=== PATIENT | male | born 1980 | race Caucasian/White ===

== ENCOUNTER 2020-08-07 17:35 | Emergency (ER) | payer OTHER ==
[~2020-08-07] VITALS: Ht 172.7 cm; Wt 74.8 kg
--- NOTE | 2020-08-07 19:05 | NUR ---
ASSUMED CARE FOR THIS PT
--- NOTE | 2020-08-07 19:15 | NUR ---
PT CAME TO THE ED W/ A PLAN TO OD ON PILLS. PT AAOX4, VSS, RESPIRATIONS EVEN AND UNLABORED ON RA W/ NAD NOTED. PT CONNECTED TO THE MONITOR AND POX. PT CHANGED TO GOWN, BELONGINGS PLACED TO LOCKER. SAFETY PRECAUTIONS IMPLEMENTED. WILL CONTINUE TO MONITOR PT
[2020-08-07 19:22] LABS: BASOPHILS % (AUTO) 0.7 % (0.0-2.0); EOSINOPHILS % (AUTO) 3.7 % (0.0-6.0); HEMATOCRIT 43 % (39-51); HEMOGLOBIN 14.6 g/dL (13.5-17.5); LYMPHOCYTES # (AUTO) 1.6 /CMM (0.8-4.8); LYMPHOCYTES % (AUTO) 24.8 % (20.0-44.0); MEAN CORPUSCULAR HGB CONC 34 g/dl (31.0-36.0); MEAN CORPUSCULAR VOLUME 92 fL (80-96); MONOCYTES # (AUTO) 0.5 /CMM (0.1-1.30); MONOCYTES % (AUTO) 7.7 % (2.0-12.0); NEUTROPHILS # (AUTO) 4.1 /CMM (1.8-8.9); NEUTROPHILS % (AUTO) 63.1 % (43.0-81.0); PLATELET COUNT (AUTO) 257 /CMM (150-450); RED BLOOD CELL COUNT(AUTO) 4.72 MIL/uL (4.5-6.0); WHITE BLOOD COUNT (AUTO) 6.5 K/uL (4.3-11.0)
[2020-08-07 19:29] LABS: CALCIUM, SERUM 8.8 mg/dL (8.5-10.1); CARBON DIOXIDE 28 mmol/L (21-32); CHLORIDE 105 mmol/L (98-107); CREATININE 0.8 mg/dL (0.6-1.3); GLUCOSE 100 mg/dL (74-106); POTASSIUM 4.1 mmol/L (3.5-5.1); SODIUM SERUM 140 mmol/L (136-145); UREA NITROGEN, BLOOD 12 mg/dL (7-18)
[2020-08-07 19:33] LABS: ALCOHOL, BLOOD < 3 mg/dL (0-0)
[2020-08-07 19:36] LABS: ACETAMINOPHEN 0 ug/ml (10-30); SALICYLATE 2.2 mg/dL (2.8-20.0)
--- NOTE | 2020-08-07 21:20 | NUR ---
URINE COLLECTED AND SENT TO LAB
--- NOTE | 2020-08-07 23:01 | NUR ---
CLINICAL FAXED TO [facility].
--- NOTE | 2020-08-08 02:28 | NUR ---
REPORT CALLED TO [facility] [address] LOYDA MORRIS. AWAITING TRANSPORT.
[2020-08-08 03:07] VITALS: BP 112/64
--- NOTE | 2020-08-08 03:08 | NUR ---
REPORT GIVEN TO EMS. PT STABLE FOR TRANSFER
== END 2020-08-08 03:09 ==
LOC: ER 17:41
DX: R45.851 Suicidal ideations (principal); F20.9 Schizophrenia, unspecified; F41.8 Other specified anxiety disorders; Z91.5 Personal history of self-harm; Z20.828 Contact with and (suspected) exposure to other viral communicable diseases; F17.210 Nicotine dependence, cigarettes, uncomplicated
CPT/HCPCS: 36415; 80048; 80299; 80307 ×2; 80320; 85025; 87426; 99285; 99406; A6403; C9803; J7040; G0480

== ENCOUNTER 2020-08-29 18:35 | Emergency (ER) | payer OTHER ==
[~2020-08-29] VITALS: Ht 177.8 cm; Wt 72.6 kg
--- NOTE | 2020-08-29 19:02 | NUR ---
URINE SPECIMEN COLLECTED AND SENT TO LAB.
--- NOTE | 2020-08-29 19:10 | NUR ---
PT CAME TO THE ER C/O SI W/ A PLAN TO RUN INTO TRAFFIC. PT DENIES HI. PT STATES " I HAVE BEEN REALLY SAD AND DEPRESSED". PT AAOX4, VSS, RESPIRATIONS EVEN AND UNLABORED ON RA W/ NAD NOTED. SITTER AT BEDSIDE FOR SAFETY. SUICIDE PRECAUTIONS IMPLEMENTED. PT CHANGED INTO GOWN, BELONGINGS PLACED TO LOCKER. WILL CONTINUE TO MONITOR
[2020-08-29 19:31] LABS: BASOPHILS # (AUTO) 0.1 /CMM (0.0-0.2); BASOPHILS % (AUTO) 1.1 % (0.0-2.0); EOSINOPHILS % (AUTO) 5.2 % (0.0-6.0); HEMATOCRIT 44 % (39-51); HEMOGLOBIN 15.2 g/dL (13.5-17.5); LYMPHOCYTES # (AUTO) 2.8 /CMM (0.8-4.8); LYMPHOCYTES % (AUTO) 36.5 % (20.0-44.0); MEAN CORPUSCULAR HGB CONC 35 g/dl (31.0-36.0); MEAN CORPUSCULAR VOLUME 92 fL (80-96); MONOCYTES # (AUTO) 0.6 /CMM (0.1-1.30); MONOCYTES % (AUTO) 7.3 % (2.0-12.0); NEUTROPHILS # (AUTO) 3.8 /CMM (1.8-8.9); NEUTROPHILS % (AUTO) 49.9 % (43.0-81.0); PLATELET COUNT (AUTO) 290 /CMM (150-450); RED BLOOD CELL COUNT(AUTO) 4.74 MIL/uL (4.5-6.0); WHITE BLOOD COUNT (AUTO) 7.5 K/uL (4.3-11.0)
[2020-08-29 19:44] LABS: APPEARANCE,URINE CLEAR (CLEAR); BILIRUBIN,URINE NEGATIVE (NEGATIVE); BLOOD, URINE NEGATIVE Ery/uL (NEGATIVE); COLOR,URINE YELLOW (YELLOW); LEUKOCYTE ESTERASE ,URINE NEGATIVE (NEGATIVE); NITRITE, URINE NEGATIVE (NEGATIVE); PROTEIN,URINE NEGATIVE (NEGATIVE); UGLUCOSE NEGATIVE (NEGATIVE); UROBILINOGEN,URINE 0.2 EU/dL (0.2)
--- NOTE | 2020-08-29 20:06 | NUR ---
COVID SWAB SAMPLE COLLECTED AND SENT TO THE LAB.
[2020-08-29 20:18] LABS: ALANINE AMINOTRANSFERASE 180 U/L (12-78); ALBUMIN 3.8 g/dL (3.4-5.0); ALCOHOL, BLOOD < 3 mg/dL (0-0); ALKALINE PHOSPHATASE 97 U/L (46-116); ASPARTATE AMINOTRANSFERASE 55 U/L (15-37); BILIRUBIN,TOTAL 0.2 mg/dL (0.2-1.0); CALCIUM, SERUM 9.1 mg/dL (8.5-10.1); CARBON DIOXIDE 25 mmol/L (21-32); CHLORIDE 102 mmol/L (98-107); CREATININE 0.9 mg/dL (0.6-1.3); GLUCOSE 102 mg/dL (74-106); POTASSIUM 3.5 mmol/L (3.5-5.1); SODIUM SERUM 139 mmol/L (136-145); TOTAL PROTEIN, SERUM 7.5 g/dL (6.4-8.2); UREA NITROGEN, BLOOD 11 mg/dL (7-18)
[2020-08-29 20:33] LABS: ACETAMINOPHEN < 2 ug/ml (10-30)
--- NOTE | 2020-08-29 22:45 | NUR ---
Facesheet and clinicals faxed to Katja Garc[facility].
[2020-08-30 01:08] VITALS: BP 111/71
--- NOTE | 2020-08-30 01:31 | NUR ---
CASSIE FROM [employer] [facility] CALLED, PATIENT IS "GOOD TO GO". JUST WAITING FOR INSURANCE APPROVAL.
--- NOTE | 2020-08-30 01:46 | NUR ---
Patient is resting comfortably in bed with eyes closed. Easily aroused. VSS
--- NOTE | 2020-08-30 01:58 | NUR ---
Call from [facility]. Pt accepted by Dr Dumont, Unit 1. # for report [phone].
--- NOTE | 2020-08-30 02:04 | NUR ---
[facility] called for transportation. Trip# [phone]
--- NOTE | 2020-08-30 02:29 | NUR ---
[facility] eta 1hr.
--- NOTE | 2020-08-30 02:53 | NUR ---
REPORT GIVEN TO LOYDA LONG [facility] FOR RAJESH
--- NOTE | 2020-08-30 02:54 | NUR ---
REPORT GIVEN TO [facility] EMT FOR RAJESH. AND TRANSFERRING RESPONSIBILTIES.
--- NOTE | 2020-08-30 03:01 | NUR ---
PATIENT IS TAKEN BY [facility] TEAM.
== END 2020-08-30 03:01 ==
LOC: ER 18:41
DX: R45.851 Suicidal ideations (principal); F41.9 Anxiety disorder, unspecified; F20.9 Schizophrenia, unspecified; F17.200 Nicotine dependence, unspecified, uncomplicated; Z20.828 Contact with and (suspected) exposure to other viral communicable diseases
CPT/HCPCS: 36415; 80048; 80076; 80299; 80307; 80320; 81001; 85025; 87426; 99285; C9803; 81000-TC; G0480

== ENCOUNTER 2020-10-10 12:53 | Emergency (ER) | payer OTHER ==
[~2020-10-10] VITALS: Ht 177.8 cm; Wt 72.6 kg
--- NOTE | 2020-10-10 13:22 | NUR ---
PT C/O SI. "I'M THINKING ABOUT HARMING MYSELF BY OVERDOSING ON PILLS", -HI. TO ER BED 14, HOOKED TO MONITOR, CHANGED TO HOSP GOWN, WARM BLANKET PROVIDED, PATIENT AAO x 4. BREATHING EVEN AND UNLABORED. AWAITING MD HARR[place]. 1:1 SITTER AT BEDSIDE FOR SAFETY. SUICIDE PRECAUTIONS APPLIED.
--- NOTE | 2020-10-10 15:26 | NUR ---
RAPID COVIS SWAB DONE AND SENT TO LAB
--- NOTE | 2020-10-10 17:22 | NUR ---
PATIENT IN BED ASLEEP, EASILY AROUSABLE BY VOICE. HOOKED TO MONITOR. VSS. WILL CONTINUE TO MONITOR ACCORDINGLY. SITTER AT BEDSIDE
[2020-10-10 18:15] LABS: BASOPHILS % (AUTO) 0.4 % (0.0-2.0); EOSINOPHILS % (AUTO) 3.5 % (0.0-6.0); HEMATOCRIT 49 % (39-51); HEMOGLOBIN 16.4 g/dL (13.5-17.5); LYMPHOCYTES # (AUTO) 3.3 /CMM (0.8-4.8); LYMPHOCYTES % (AUTO) 34.5 % (20.0-44.0); MEAN CORPUSCULAR HGB CONC 33 g/dl (31.0-36.0); MEAN CORPUSCULAR VOLUME 92 fL (80-96); MONOCYTES # (AUTO) 0.5 /CMM (0.1-1.30); MONOCYTES % (AUTO) 5.7 % (2.0-12.0); NEUTROPHILS # (AUTO) 5.4 /CMM (1.8-8.9); NEUTROPHILS % (AUTO) 55.9 % (43.0-81.0); PLATELET COUNT (AUTO) 267 /CMM (150-450); RED BLOOD CELL COUNT(AUTO) 5.34 MIL/uL (4.5-6.0); WHITE BLOOD COUNT (AUTO) 9.6 K/uL (4.3-11.0)
[2020-10-10 18:22] LABS: BILIRUBIN,URINE SMALL (NEGATIVE); COLOR,URINE ORANGE (YELLOW); LEUKOCYTE ESTERASE ,URINE Negative (NEGATIVE); NITRITE, URINE Negative (NEGATIVE); PROTEIN,URINE Negative (NEGATIVE); UGLUCOSE Negative (NEGATIVE); UROBILINOGEN,URINE 0.2 EU/dL (0.2)
[2020-10-10 18:31] LABS: ALANINE AMINOTRANSFERASE 33 U/L (12-78); ALBUMIN 3.8 g/dL (3.4-5.0); ALCOHOL, BLOOD < 3 mg/dL (0-0); ALKALINE PHOSPHATASE 96 U/L (46-116); ASPARTATE AMINOTRANSFERASE 19 U/L (15-37); BILIRUBIN,DIRECT 0.1 mg/dL (0.0-0.2); BILIRUBIN,TOTAL 0.4 mg/dL (0.2-1.0); CALCIUM, SERUM 9.5 mg/dL (8.5-10.1); CARBON DIOXIDE 26 mmol/L (21-32); CHLORIDE 105 mmol/L (98-107); CREATININE 0.8 mg/dL (0.6-1.3); GLUCOSE 80 mg/dL (74-106); POTASSIUM 3.8 mmol/L (3.5-5.1); SODIUM SERUM 141 mmol/L (136-145); TOTAL PROTEIN, SERUM 7.7 g/dL (6.4-8.2); UREA NITROGEN, BLOOD 7 mg/dL (7-18)
[2020-10-10 18:32] LABS: ACETAMINOPHEN 0 ug/ml (10-30)
--- NOTE | 2020-10-10 18:59 | NUR ---
PATIENT IN BED ASLEEP, EASILY AROUSABLE BY VOICE. HOOKED TO MONITOR. VSS. WILL CONTINUE TO MONITOR ACCORDINGLY. SITTER AT BEDSIDE
--- NOTE | 2020-10-10 19:51 | NUR ---
Norma heart in EDM - 10/10/20 at 1951 by MIKE CLINICAL FAXED TO [facility] FOR VOLUNTARY PSYCH ADMISSION.
--- NOTE | 2020-10-10 20:09 | NUR ---
Facesheet and clinicals faxed to Katja García
[2020-10-10 20:42] LABS: BACTERIA,URINE Rare /HPF (None Seen); RBC,URINE 0-2 /HPF (0-2); WBC,URINE 0-2 /HPF (0-3)
[2020-10-10 20:43] LABS: MUCUS,URINE Many /LPF (None Seen); SQUAMOUS EPITHELIAL CELL,UR Rare /HPF (None Seen)
--- NOTE | 2020-10-10 23:49 | NUR ---
PT ACCEPTED AT [facility] RUTHIE JONES ACCEPTING MD PAULSON PT WILL GO TO UNIT 2
--- NOTE | 2020-10-11 00:26 | NUR ---
[facility] called for transport. Trip# [id number]
--- NOTE | 2020-10-11 00:29 | NUR ---
[facility] ETA 60 minutes.
--- NOTE | 2020-10-11 00:55 | NUR ---
REPORT GIVEN TO LOYDA HI FOR [facility]
[2020-10-11 00:56] VITALS: BP 118/72
--- NOTE | 2020-10-11 01:00 | NUR ---
[facility] ambulance at bedside for transport to [facility],.
== END 2020-10-11 01:11 ==
LOC: ER 12:58
DX: R45.851 Suicidal ideations (principal); F20.9 Schizophrenia, unspecified; Z20.828 Contact with and (suspected) exposure to other viral communicable diseases
CPT/HCPCS: 36415; 80048; 80076; 80299; 80307; 80320; 81001; 84703; 85025; 87426; 99285; C9803; G0480

== ENCOUNTER 2020-10-20 15:44 | Emergency (ER) | payer OTHER ==
[~2020-10-20] VITALS: Ht 177.8 cm; Wt 79.4 kg
[2020-10-20 17:33] LABS: BILIRUBIN,URINE Negative (NEGATIVE); BLOOD, URINE Negative Ery/uL (NEGATIVE); COLOR,URINE YELLOW (YELLOW); LEUKOCYTE ESTERASE ,URINE Negative (NEGATIVE); NITRITE, URINE Negative (NEGATIVE); PROTEIN,URINE Negative (NEGATIVE); UGLUCOSE Negative (NEGATIVE); UROBILINOGEN,URINE 0.2 EU/dL (0.2)
[2020-10-20 17:37] LABS: BASOPHILS # (AUTO) 0.1 /CMM (0.0-0.2); BASOPHILS % (AUTO) 1.1 % (0.0-2.0); EOSINOPHILS % (AUTO) 3.2 % (0.0-6.0); HEMATOCRIT 46 % (39-51); HEMOGLOBIN 15.6 g/dL (13.5-17.5); LYMPHOCYTES # (AUTO) 2.6 /CMM (0.8-4.8); LYMPHOCYTES % (AUTO) 30.5 % (20.0-44.0); MEAN CORPUSCULAR HGB CONC 34 g/dl (31.0-36.0); MEAN CORPUSCULAR VOLUME 91 fL (80-96); MONOCYTES # (AUTO) 0.6 /CMM (0.1-1.30); MONOCYTES % (AUTO) 7.5 % (2.0-12.0); NEUTROPHILS % (AUTO) 57.7 % (43.0-81.0); PLATELET COUNT (AUTO) 319 /CMM (150-450); RED BLOOD CELL COUNT(AUTO) 5.08 MIL/uL (4.5-6.0); WHITE BLOOD COUNT (AUTO) 8.6 K/uL (4.3-11.0)
[2020-10-20 17:41] LABS: CARBON DIOXIDE 30 mmol/L (21-32); CHLORIDE 104 mmol/L (98-107); CREATININE 0.8 mg/dL (0.6-1.3); GLUCOSE 109 mg/dL (74-106); SODIUM SERUM 142 mmol/L (136-145); UREA NITROGEN, BLOOD 8 mg/dL (7-18)
[2020-10-20 17:51] LABS: ALANINE AMINOTRANSFERASE 144 U/L (12-78); ALBUMIN 3.9 g/dL (3.4-5.0); ALCOHOL, BLOOD 4 mg/dL (0-0); ALKALINE PHOSPHATASE 89 U/L (46-116); ASPARTATE AMINOTRANSFERASE 61 U/L (15-37); BILIRUBIN,TOTAL 0.2 mg/dL (0.2-1.0)
[2020-10-20 17:53] LABS: ACETAMINOPHEN < 2 ug/ml (10-30)
--- NOTE | 2020-10-20 19:16 | NUR ---
LAB CALLED REGARDING NEGATIVE COVID RESULT
--- NOTE | 2020-10-20 22:35 | NUR ---
CLINICAL FAXED TO [facility] FOR VOLUNTARY ADMISSION.
--- NOTE | 2020-10-20 22:53 | NUR ---
CALL FROM [facility], PT ACCEPTED TO [facility] BY DR PAULSON. # FOR REPORT [phone]
--- NOTE | 2020-10-20 22:59 | NUR ---
[facility] CALLED FOR TRANSPORT. [facility] ETA 0030
[2020-10-20 23:52] VITALS: BP 132/74
--- NOTE | 2020-10-20 23:52 | NUR ---
REPORT GIVEN TO JOVANNI SCALES [facility]UTHIE JONES FOR RAJESH.
--- NOTE | 2020-10-21 00:41 | NUR ---
TRANSPORT AT BEDSIDE REPORT GIVEN TO EMT.
== END 2020-10-21 00:43 ==
LOC: ER 15:55
DX: R45.851 Suicidal ideations (principal); F20.9 Schizophrenia, unspecified; Z20.828 Contact with and (suspected) exposure to other viral communicable diseases; R74.01 Elevation of levels of liver transaminase levels; F32.9 Major depressive disorder, single episode, unspecified; F17.200 Nicotine dependence, unspecified, uncomplicated
CPT/HCPCS: 36415; 80048; 80076; 80299; 80307; 80320; 81003; 85025; 87426; 99285; C9803; G0480

== ENCOUNTER 2020-12-19 16:49 | Emergency (ER) | payer OTHER ==
[~2020-12-19] VITALS: Ht 177.8 cm; Wt 79.4 kg
--- NOTE | 2020-12-19 17:00 | NUR ---
+SI "i want to overdose on pills". PT AAOX4, VSS. RR EVEN & UNLABORED. DENIES ANY OTHER DISCOMFORT. PT SEEN & EVAL'D BY DR. LINDA. URSULA @ BS & WILL CONT TO MONITOR.
[2020-12-19 17:21] LABS: BASOPHILS # (AUTO) 0.1 /CMM (0.0-0.2); BASOPHILS % (AUTO) 1.1 % (0.0-2.0); EOSINOPHILS % (AUTO) 6.2 % (0.0-6.0); HEMATOCRIT 45 % (39-51); HEMOGLOBIN 15.3 g/dL (13.5-17.5); LYMPHOCYTES % (AUTO) 25.2 % (20.0-44.0); MEAN CORPUSCULAR HGB CONC 34 g/dl (31.0-36.0); MEAN CORPUSCULAR VOLUME 91 fL (80-96); MONOCYTES # (AUTO) 0.6 /CMM (0.1-1.30); MONOCYTES % (AUTO) 8.1 % (2.0-12.0); NEUTROPHILS # (AUTO) 4.7 /CMM (1.8-8.9); NEUTROPHILS % (AUTO) 59.4 % (43.0-81.0); PLATELET COUNT (AUTO) 297 /CMM (150-450); RED BLOOD CELL COUNT(AUTO) 4.94 MIL/uL (4.5-6.0); WHITE BLOOD COUNT (AUTO) 7.9 K/uL (4.3-11.0)
[2020-12-19 17:21] LABS: BILIRUBIN,URINE Negative (NEGATIVE); COLOR,URINE YELLOW (YELLOW); LEUKOCYTE ESTERASE ,URINE Negative (NEGATIVE); NITRITE, URINE Negative (NEGATIVE); PH,URINE 5.5 (5.0-8.0); PROTEIN,URINE Negative (NEGATIVE); UGLUCOSE Negative (NEGATIVE); UROBILINOGEN,URINE 0.2 EU/dL (0.2)
[2020-12-19 18:03] LABS: ACETAMINOPHEN < 2 ug/ml (10-30); ALANINE AMINOTRANSFERASE 96 U/L (12-78); ALBUMIN 3.8 g/dL (3.4-5.0); ALCOHOL, BLOOD < 3 mg/dL (0-0); ALKALINE PHOSPHATASE 95 U/L (46-116); ASPARTATE AMINOTRANSFERASE 38 U/L (15-37); BILIRUBIN,DIRECT 0.1 mg/dL (0.0-0.2); BILIRUBIN,TOTAL 0.2 mg/dL (0.2-1.0); CARBON DIOXIDE 26 mmol/L (21-32); CHLORIDE 105 mmol/L (98-107); CREATININE 0.9 mg/dL (0.6-1.3); GLUCOSE 119 mg/dL (74-106); POTASSIUM 3.8 mmol/L (3.5-5.1); SODIUM SERUM 141 mmol/L (136-145); TOTAL PROTEIN, SERUM 7.7 g/dL (6.4-8.2); UREA NITROGEN, BLOOD 15 mg/dL (7-18)
--- NOTE | 2020-12-19 19:30 | NUR ---
PT CALM & COOPERATIVE, NAD NOTED AT THIS TIME. WILL CONT TO MONITOR.
--- NOTE | 2020-12-19 20:31 | NUR ---
Call from [facility] intake. Pt accepted to [facility] by Dr Roland. Unit 2. # for report [phone]
--- NOTE | 2020-12-19 21:06 | NUR ---
[facility] called for transport. Trip# [id number]
--- NOTE | 2020-12-19 21:13 | NUR ---
[facility] eta 90 minutes.
[2020-12-19 21:36] VITALS: BP 131/79
--- NOTE | 2020-12-19 21:41 | NUR ---
REPORT GIVEN TO LOYDA HUNT FOR RAJESH AT THE [facility]
--- NOTE | 2020-12-19 22:28 | NUR ---
REPORT GIVEN TO [facility] EMT
--- NOTE | 2020-12-19 22:35 | NUR ---
PT WAS TRANSFERRED TO [facility] VIA [facility] IN STABLE CONDITION. ALL BELONGINGS WERE PICKED UP BY PT/ manager utilization management
== END 2020-12-19 22:37 ==
LOC: ER 16:51
DX: R45.851 Suicidal ideations (principal); Z20.822 Contact with and (suspected) exposure to COVID-19; F32.9 Major depressive disorder, single episode, unspecified; F20.9 Schizophrenia, unspecified; Z79.899 Other long term (current) drug therapy
CPT/HCPCS: 36415; 80048; 80076; 80299; 80307; 80320; 81003; 85025; 87426; 99285; C9803; G0480

== ENCOUNTER 2025-06-18 13:17 | Emergency (ER) | payer MEDICAID, OTHER ==
[~2025-06-18] VITALS: Ht 177.8 cm; Wt 86.2 kg
[2025-06-18 13:53] LABS: PLATELET COUNT (AUTO) 308 K/uL (150-450); RED BLOOD CELL COUNT(AUTO) 5.11 MIL/uL (4.5-6.0); RED CELL DISTRIBUTION WIDTH 14.8 % (11.5-15.0); WHITE BLOOD COUNT (AUTO) 7.6 K/uL (4.3-11.0)
[2025-06-18 13:54] LABS: APPEARANCE,URINE CLEAR (CLEAR); BLOOD, URINE Negative Ery/uL (NEGATIVE); LEUKOCYTE ESTERASE ,URINE Negative (NEGATIVE); NITRITE, URINE NEGATIVE (NEGATIVE); UGLUCOSE Negative (NEGATIVE)
[2025-06-18 13:57] LABS: ADD URINE CULTURE NO; CALCIUM, SERUM 9.3 mg/dL (8.5-10.1); CREATININE 1.0 mg/dL (0.6-1.3); SODIUM SERUM 138 mmol/L (136-145); SQUAMOUS EPITHELIAL CELL,UR Few /HPF (None Seen); UREA NITROGEN, BLOOD 11 mg/dL (7-18)
[2025-06-18 14:02] LABS: ALCOHOL, BLOOD < 3 mg/dL (0-10); AMPHETAMINE, URINE NEGATIVE (NEGATIVE); ASPARTATE AMINOTRANSFERASE 14 U/L (15-37); BARBITURATE, URINE NEGATIVE (NEGATIVE); BENZODIAZEPINE, URINE NEGATIVE (NEGATIVE); CANNABINOID, URINE NEGATIVE (NEGATIVE); COCCAINE, URINE NEGATIVE (NEGATIVE); OPIATE, URINE NEGATIVE (NEGATIVE); TOTAL PROTEIN, SERUM 7.0 g/dL (6.4-8.2)
[2025-06-18] MEDS ORDERED: LORAZEPAM 1 MG TABLET ONE (17:16)
[2025-06-18] MEDS: LORAZEPAM 1 MG TABLET PO ONE (17:16)
[2025-06-18 23:10] VITALS: BP 136/98; TEMP 98.5; O2SAT 97
== END 2025-06-19 00:34 ==
LOC: ER 13:24
DX: F32.A Depression, unspecified (principal); F17.200 Nicotine dependence, unspecified, uncomplicated; I10 Essential (primary) hypertension; F20.9 Schizophrenia, unspecified; F41.9 Anxiety disorder, unspecified; J45.909 Unspecified asthma, uncomplicated; Z60.2 Problems related to living alone; Z20.822 Contact with and (suspected) exposure to COVID-19; Z79.899 Other long term (current) drug therapy
CPT/HCPCS: 36415; 80048-TC; 80076-TC; 81001; 85025-TC; G0480